=== PATIENT | male | born 1945 | race Caucasian/White ===

== ENCOUNTER 2024-09-04 09:58 | Outpatient (CLI) | payer MEDICARE | END 2024-09-04 09:59 | disposition home or self-care (01) | LOC: BICCT 09:58 | PROVIDERS: ATTEND Internal Medicine Hematology & Oncology | DX: C43.39 Malignant melanoma of other parts of face (principal); J98.11 Atelectasis; I25.10 Atherosclerotic heart disease of native coronary artery without angina pectoris; K80.20 Calculus of gallbladder without cholecystitis without obstruction; N28.1 Cyst of kidney, acquired; N26.1 Atrophy of kidney (terminal); K40.20 Bilateral inguinal hernia, without obstruction or gangrene, not specified as recurrent; N40.0 Benign prostatic hyperplasia without lower urinary tract symptoms; M47.819 Spondylosis without myelopathy or radiculopathy, site unspecified | CPT/HCPCS: 71250; 74177 ==

== ENCOUNTER 2025-09-02 09:27 | Outpatient (CLI) | payer MEDICARE ==
[2025-09-02 10:18] LABS: Estimated GFR - POC 41.0
[2025-09-02] MEDS ORDERED: Iopamidol 370 76% 100 ML VIAL ONE (14:39)
== END 2025-09-02 09:28 | disposition home or self-care (01) ==
LOC: CT 09:27
PROVIDERS: ATTEND Internal Medicine Hematology & Oncology
DX: C43.39 Malignant melanoma of other parts of face (principal); R91.1 Solitary pulmonary nodule; S22.32XD Fracture of one rib, left side, subsequent encounter for fracture with routine healing; Z79.899 Other long term (current) drug therapy
CPT/HCPCS: 36415; 71260; 74177; 82565

== ENCOUNTER 2025-09-10 08:00 | Outpatient (CLI) | payer MEDICARE | END 2025-09-10 08:01 | disposition home or self-care (01) | LOC: PET 08:00 | PROVIDERS: ATTEND Internal Medicine Hematology & Oncology | DX: C43.39 Malignant melanoma of other parts of face (principal); Z79.899 Other long term (current) drug therapy; R91.1 Solitary pulmonary nodule | CPT/HCPCS: 78815; A9552 ==